=== PATIENT | female | born 1995 | race Caucasian/White ===

== ENCOUNTER → 2021-12-20 | Outpatient (CLI) | payer OTHER | END | disposition home or self-care (01) | LOC: RAH 15:02 | PROVIDERS: ATTEND Obstetrics & Gynecology | DX: O99.282 Endocrine, nutritional and metabolic diseases complicating pregnancy, second trimester (principal); Z34.02 Encounter for supervision of normal first pregnancy, second trimester; Z36.9 Encounter for antenatal screening, unspecified; Z3A.21 21 weeks gestation of pregnancy | CPT/HCPCS: 76805 ==